=== PATIENT | male | born 1955 | race Caucasian/White ===

== ENCOUNTER 2025-03-30 08:32 | Outpatient (CLI) | payer MEDICARE, OTHER ==
--- NOTE | 2025-03-30 14:16 | RADIOLOGY REPORT ---
PROCEDURE: MR MRI LUMBAR SPINE Indication: LOW BACK PAIN, UNSPECIFIED COMPARISON: None TECHNIQUE: Multiplanar multisequence images of the the lumbar spine are obtained. FINDINGS: For the purpose of this examination, there are 5 lumbar vertebral body types counting from the lumbos acral junction. Lumbar levocurvature. Chronic L2 compression deformity with 80% loss height. Moderate to advanced mul tilevel disc space narrowing and desiccation. Schmorl's node in the L1 superior endplate. The conus terminates at the level of the T12-L1 disc space level. Probable L5 pars defects with 3 mm anterolisthesis L5 upon S1. 9 mm T12 vertebral body hemangioma. T12-L1: Small disc protrusion. Moderate facet and flavum hypertrophy. No spinal canal stenosis. Moder ate left and svuw-fw-fitnijlj right neural foraminal stenosis. L1-2: 5 mm disc osteophyte complex. Kmnr-uv-cydyxnsh facet and flavum hypertrophy. No spinal canal st enosis. Mild bilateral neural foraminal stenosis. L2-3: 3 mm disc protrusion. Moderate facet and flavum hypertrophy. No spinal canal stenosis. Moderate right and [id number]-amgkbiea left neural foraminal stenosis. L3-4: 3 mm disc protrusion. Moderate facet and flavum hypertrophy. No spinal canal stenosis. Moderate right and [id number]-lb-rbhdnsbq left neural foraminal stenosis. L4-5: 3 mm disc protrusion. Moderate to severe facet and flavum hypertrophy. No spinal canal stenosis . Severe bilateral neural foraminal stenosis, gnqz-[id number]-upda-right. L5-S1: 4 mm disc protrusion. Moderate facet and flavum hypertrophy. No spinal canal stenosis. Severe left and moderate to severe right neural foraminal stenosis. Likely bilateral L5 pars defects. IMPRESSION: Moderate to severe lumbar degenerative disc disease. Lumbar levocurvature. Chronic L2 compression deformity. Moderate to severe multilevel neural foraminal stenosis as described. Probable L5 pars defects with 3 mm anterolisthesis L5 upon S1
== END 2025-03-30 23:59 | disposition home or self-care (01) ==
LOC: MRI02 08:32
PROVIDERS: ATTEND Nurse Practitioner
DX: S32.020A Wedge compression fracture of second lumbar vertebra, initial encounter for closed fracture (principal); M51.27 Other intervertebral disc displacement, lumbosacral region; M43.17 Spondylolisthesis, lumbosacral region; M47.817 Spondylosis without myelopathy or radiculopathy, lumbosacral region; M48.07 Spinal stenosis, lumbosacral region; X58.XXXA Exposure to other specified factors, initial encounter; Y93.89 Activity, other specified; Y92.89 Other specified places as the place of occurrence of the external cause; Y99.8 Other external cause status
CPT/HCPCS: 72148